=== PATIENT | male | born 1945 | race Caucasian/White ===

== ENCOUNTER 2016-12-12 14:40 | Emergency (ER) | payer MEDICARE, OTHER ==
[~2016-12-12] VITALS: Ht 170.2 cm; Wt 97.1 kg
[2016-12-12] MEDS ORDERED: LOSARTAN-HCTZ (14:58)
[2016-12-12] MEDS ORDERED: METF500T (14:58)
[2016-12-12] MEDS ORDERED: OMEP20CA3 (14:58)
[2016-12-12] MEDS ORDERED: DILT240C77 (14:58)
[2016-12-12] MEDS ORDERED: NIAS1TAB (14:58)
[2016-12-12] MEDS ORDERED: TOPR100T (14:58)
[2016-12-12] MEDS ORDERED: SYNT175T2 (14:58)
[2016-12-12] MEDS ORDERED: CLAR1TAB2 PO (16:35)
[2016-12-12] MEDS ORDERED: LOTRCRE TOP (16:35)
[2016-12-12 16:45] VITALS: BP 141/63
== END 2016-12-12 17:03 | disposition home or self-care (01) ==
LOC: M ED 16:44
DX: L30.9 Dermatitis, unspecified (principal); I10 Essential (primary) hypertension; K21.9 Gastro-esophageal reflux disease without esophagitis; Z79.899 Other long term (current) drug therapy

== ENCOUNTER → 2018-08-25 | Outpatient (REF) | payer MEDICARE, OTHER ==
[2018-08-25 18:43] LABS: FERRITIN 27 NG/ML (26-388); IRON (FE) 39 UG/DL (65-175); PERCENT SATURATION 10.2 % (19.7-50.0); TOTAL IRON BINDING CAPACITY 384 UG/DL (250-450)
[2018-08-25 18:52] LABS: FOLATE > 24.0 NG/ML; VITAMIN B12 LEVEL 726 PG/ML
== END ==
LOC: M LAB REF 18:18
DX: D64.9 Anemia, unspecified (principal)
CPT/HCPCS: 82746

== ENCOUNTER → 2018-08-25 | Outpatient (REF) | payer MEDICARE, OTHER ==
[2018-08-26 13:52] LABS: TOTAL PROTEIN,RANDOM URINE 127.3 MG/DL (0.0-12.0)
== END ==
LOC: M LAB REF 13:09
DX: E11.22 Type 2 diabetes mellitus with diabetic chronic kidney disease (principal)
CPT/HCPCS: 84156

== ENCOUNTER → 2018-09-07 | Outpatient (CLI) | payer MEDICARE, OTHER | LOC: M RAD 09:38 | DX: N28.1 Cyst of kidney, acquired (principal); N40.1 Benign prostatic hyperplasia with lower urinary tract symptoms; N18.3 Chronic kidney disease, stage 3 (moderate); E11.22 Type 2 diabetes mellitus with diabetic chronic kidney disease; I12.9 Hypertensive chronic kidney disease with stage 1 through stage 4 chronic kidney disease, or unspecified chronic kidney disease | CPT/HCPCS: 76775 ==

== ENCOUNTER → 2019-03-01 | Outpatient (REF) | payer MEDICARE, OTHER ==
[~2019-03-01] MED LIST: ALIG4CAP PO; ASPI81TA26 PO; B COTAB3 PO; CETI10TA PO; CLAR1TAB2 PO; DILT1CAP5; IRON27TA2 PO; LOSA100T5 PO; LOSARTAN-HCTZ; LOTRCRE TOP; METF500T13; NIAS500T23; OMEP20CA3; ROSU40TA3 PO; SYNT150T PO; SYNT175T2; TOPR100T; TRAM50TA2 PO; ZETI10TA30 PO
[2019-03-01 13:32] LABS: PERCENT SATURATION 15.7 % (19.7-50.0)
== END ==
LOC: M LAB REF 12:48
PROVIDERS: ATTEND Internal Medicine Nephrology
DX: D50.9 Iron deficiency anemia, unspecified (principal)

== ENCOUNTER 2019-03-10 10:08 | Outpatient (CLI) | payer MEDICARE, OTHER ==
[2019-03-10] VITALS (7 sets, daily range): BP systolic 138–164; BP diastolic 65–72
[~2019-03-10] VITALS: Ht 170.2 cm; Wt 97.7 kg
[2019-03-10] MEDS ORDERED: IRON SUCROSE 300 MG in NS 250 ML IV ONE (10:30)
[2019-03-10] MEDS ORDERED: IRON SUCROSE 25 MG in NS 50 ML IV ONE (11:15)
[2019-03-10] MEDS ORDERED: IRON SUCROSE 275 MG in NS 250 ML IV ONE (12:00)
== END 2019-03-10 16:20 | disposition home or self-care (01) ==
LOC: M INFU 10:08
PROVIDERS: ATTEND Internal Medicine Nephrology
DX: N18.3 Chronic kidney disease, stage 3 (moderate) (principal); D50.9 Iron deficiency anemia, unspecified; I12.9 Hypertensive chronic kidney disease with stage 1 through stage 4 chronic kidney disease, or unspecified chronic kidney disease; R80.9 Proteinuria, unspecified; Z79.899 Other long term (current) drug therapy
CPT/HCPCS: 96365; 96366; J1756

== ENCOUNTER 2019-03-17 10:05 | Outpatient (CLI) | payer MEDICARE, OTHER ==
[~2019-03-17] VITALS: Ht 165.1 cm; Wt 97.7 kg
[2019-03-17 10:10] VITALS: BP 123/59
[2019-03-17] MEDS ORDERED: IRON SUCROSE 300 MG in NS 250 ML IV ONE (11:00)
[2019-03-17 11:15] VITALS: BP 127/60
[2019-03-17 12:00] VITALS: BP 142/65
[2019-03-17] MEDS ORDERED: FUROSEMIDE 20 MG/2 ML VIAL (J1940) IV ONE (12:00)
[2019-03-17 13:00] VITALS: BP 138/61
[2019-03-17 14:15] VITALS: BP 139/65
[2019-03-17 14:35] VITALS: BP 144/64
== END 2019-03-17 14:40 | disposition home or self-care (01) ==
LOC: M INFU 10:05
PROVIDERS: ATTEND Internal Medicine Nephrology
DX: D50.9 Iron deficiency anemia, unspecified (principal)
CPT/HCPCS: 96365; 96366; 96375; J1756; J1940

== ENCOUNTER → 2019-06-02 | Outpatient (REF) | payer MEDICARE, OTHER ==
[~2019-06-02] MED LIST changes: +AMLO25TA PO; -METF500T13; +METF500T13 PO; +NESI12.5 PO; +OMEP1CAP73; -OMEP20CA3; -ROSU40TA3 PO; +ROSU40TA4 PO; +SENTTAB2 PO; +SUPETAB44 PO; -TOPR100T; +TOPR100T PO; +ZETI10TA16 PO; -ZETI10TA30 PO
[2019-06-02 19:01] LABS: FERRITIN 127 NG/ML (26-388); IRON (FE) 42 UG/DL (65-175); PERCENT SATURATION 12.8 % (19.7-50.0); TOTAL IRON BINDING CAPACITY 328 UG/DL (250-450)
[2019-06-02 19:06] LABS: URINE TOTAL PROTEIN 54.4 MG/DL (0-12)
[2019-06-03 13:22] LABS: ALBUMIN 4.45 GM/DL (3.29-5.55); ALBUMIN % 58.6 % (55.8-66.1); ALPHA-1-GLOBULIN % 3.8 % (2.9-4.9); ALPHA-1-GLOBULINS 0.29 GM/DL (0.17-0.41); ALPHA-2-GLOBULINS 1.06 GM/DL (0.42-0.99); ALPHA-2-GLOBULINS % 13.9 % (7.1-11.8); BETA-1-GLOBULINS 0.47 GM/DL (0.28-0.60); BETA-1-GLOBULINS % 6.2 % (4.7-7.2); BETA-2-GLOBULINS 0.42 GM/DL (0.19-0.55); BETA-2-GLOBULINS % 5.5 % (3.2-6.5); GAMMA GLOBULINS 0.91 GM/DL (0.65-1.58)
[2019-06-03 15:03] LABS: UPEP INTERPRETATION NO M-SPIKE NOTED; URINE VOLUME RANDOM ML
== END ==
LOC: M LAB REF 17:13
PROVIDERS: ATTEND Internal Medicine Nephrology
DX: R80.9 Proteinuria, unspecified (principal); D50.9 Iron deficiency anemia, unspecified

== ENCOUNTER → 2019-06-09 | Outpatient (CLI) | payer MEDICARE, OTHER ==
[2019-06-09] VITALS (8 sets, daily range): BP systolic 136–158; BP diastolic 64–70
[~2019-06-09] VITALS: Ht 170.2 cm; Wt 98.6 kg
[~2019-06-09] MED LIST changes: -AMLO25TA PO; +IRON SUCROSE 175 MG in NS 250 ML IV ONE; +IRON SUCROSE 25 MG in NS 50 ML IV ONE; +METF500T13; -METF500T13 PO; -NESI12.5 PO; -OMEP1CAP73; +OMEP20CA4; -SENTTAB2 PO; -SUPETAB44 PO; +TOPR100T; -TOPR100T PO
== END ==
LOC: M INFU 10:18
PROVIDERS: ATTEND Internal Medicine Nephrology
DX: D50.9 Iron deficiency anemia, unspecified (principal)
CPT/HCPCS: 96365; 96366; J1756

== ENCOUNTER 2019-06-16 10:10 | Outpatient (CLI) | payer MEDICARE, OTHER ==
[~2019-06-16] VITALS: Ht 170.2 cm; Wt 98.7 kg
[~2019-06-16 10:10] MED LIST changes: -IRON SUCROSE 175 MG in NS 250 ML IV ONE; -IRON SUCROSE 25 MG in NS 50 ML IV ONE; -METF500T13; +METF500T13 PO; +OMEP1CAP73; -OMEP20CA4; -TOPR100T; +TOPR100T PO
[2019-06-16 10:15] VITALS: BP 141/58
[2019-06-16] MEDS ORDERED: IRON SUCROSE 200 MG in NS 100 ML OVER 1 HR IV ONE (11:00)
[2019-06-16 11:05] VITALS: BP 148/65
[2019-06-16 12:05] VITALS: BP 140/63
[2019-06-16 13:15] VITALS: BP 126/59
[2019-08-19] MEDS ORDERED: AMLO25TA PO (09:52)
[2019-10-18] MEDS ORDERED: SENTTAB2 PO (09:50)
[2019-10-18] MEDS ORDERED: SUPETAB44 PO (09:50)
[2019-10-18] MEDS ORDERED: NESI12.5 PO (09:50)
== END 2019-06-16 13:15 | disposition home or self-care (01) ==
LOC: M INFU 10:10
PROVIDERS: ATTEND Internal Medicine Nephrology
DX: D50.9 Iron deficiency anemia, unspecified (principal); Z79.899 Other long term (current) drug therapy
CPT/HCPCS: 96365; 96366; J1756

== ENCOUNTER 2019-06-23 10:15 | Outpatient (CLI) | payer MEDICARE, OTHER ==
[~2019-06-23] VITALS: Ht 170.2 cm; Wt 98.6 kg
[~2019-06-23 10:15] MED LIST changes: +METF500T13; -METF500T13 PO; -OMEP1CAP73; +OMEP20CA4; +TOPR100T; -TOPR100T PO
[2019-06-23 10:20] VITALS: BP 143/65
[2019-06-23] MEDS: IRON SUCROSE 200 MG in NS 200 ML IV ONE (11:02)
[2019-06-23 11:15] VITALS: BP 132/59
[2019-06-23 12:00] VITALS: BP 139/62
[2019-06-23 13:00] VITALS: BP 128/60
[2019-06-23 13:35] VITALS: BP 132/59
== END 2019-06-23 13:35 | disposition home or self-care (01) ==
LOC: M INFU 10:15
PROVIDERS: ATTEND Internal Medicine Nephrology
DX: D50.9 Iron deficiency anemia, unspecified (principal); Z79.899 Other long term (current) drug therapy
CPT/HCPCS: 96365; 96366; J1756

== ENCOUNTER → 2019-08-03 | Outpatient (REF) | payer MEDICARE, OTHER ==
[2019-08-03 18:38] LABS: PERCENT SATURATION 22.4 % (19.7-50.0)
== END ==
LOC: M LAB REF 16:43
PROVIDERS: ATTEND Internal Medicine Nephrology
DX: D50.9 Iron deficiency anemia, unspecified (principal)

== ENCOUNTER → 2019-11-04 | Outpatient (REF) | payer MEDICARE, OTHER ==
[~2019-11-04] MED LIST changes: +AMLO25TA PO; -METF500T13; +METF500T13 PO; +NESI12.5 PO; +OMEP1CAP73; -OMEP20CA4; +SENTTAB2 PO; +SUPETAB44 PO; -TOPR100T; +TOPR100T PO
== END ==
LOC: M LAB REF 16:57
PROVIDERS: ATTEND Internal Medicine Nephrology
DX: R80.9 Proteinuria, unspecified (principal)

== ENCOUNTER → 2021-02-01 | Outpatient (REF) | payer MEDICARE, OTHER ==
[2021-02-01 18:22] LABS: PERCENT SATURATION 12.2 % (19.7-50.0)
== END ==
LOC: M LAB REF 16:46
PROVIDERS: ATTEND Internal Medicine Nephrology
DX: D50.9 Iron deficiency anemia, unspecified (principal)

== ENCOUNTER 2021-03-07 12:25 | Outpatient (CLI) | payer MEDICARE, OTHER ==
[~2021-03-07] VITALS: Ht 170.2 cm; Wt 96.8 kg
[~2021-03-07 12:25] MED LIST changes: +ALBUTEROL SULFATE 2.5 MG/0.5 ML INH NEB SOLN INH PRN; +EPINEPHrine INJ 1 MG/ML 1ML AMP IM PRN; +diphenhydrAMINE 50MG/ML VIAL (J1200) IV PRN; +methylPREDNISolone 125MG 2ML VIAL IV PRN
[2021-03-07 12:40] VITALS: BP 128/61
[2021-03-07] MEDS ORDERED: NS 1,000 ML IV SCH (13:00)
[2021-03-07] MEDS ORDERED: FERRIC CARBOXYMALTOSE INJ 750 MG, VIAL MATE ADAPTER 1 EACH in NS 250 ML IV ONE (13:00)
[2021-03-07] MEDS ORDERED: diphenhydrAMINE 50MG/ML VIAL (J1200) IV ONE (13:00)
[2021-03-07 14:16] VITALS: BP 141/63
[2021-03-07 15:00] VITALS: BP 126/62
== END 2021-03-07 15:00 | disposition home or self-care (01) ==
LOC: M INFU 12:25
PROVIDERS: ATTEND Internal Medicine Nephrology
DX: D50.9 Iron deficiency anemia, unspecified (principal)
CPT/HCPCS: 96365; J1439

== ENCOUNTER 2021-03-15 13:14 | Outpatient (CLI) | payer MEDICARE, OTHER ==
[~2021-03-15] VITALS: Ht 170.2 cm; Wt 100.2 kg
[2021-03-15 13:20] VITALS: BP 164/72
[2021-03-15] MEDS ORDERED: diphenhydrAMINE 50MG/ML VIAL (J1200) IV ONE (14:00)
[2021-03-15] MEDS ORDERED: NS 1,000 ML IV SCH (14:00)
[2021-03-15] MEDS ORDERED: FERRIC CARBOXYMALTOSE INJ 750 MG, VIAL MATE ADAPTER 1 EACH in NS 250 ML IV ONE (14:00)
[2021-03-15 15:00] VITALS: BP 160/70
[2021-03-15 16:15] VITALS: BP 145/75
== END 2021-03-15 16:15 | disposition home or self-care (01) ==
LOC: M INFU 13:14
PROVIDERS: ATTEND Internal Medicine Nephrology
DX: D50.9 Iron deficiency anemia, unspecified (principal)
CPT/HCPCS: 96365; 96366; J1439

== ENCOUNTER → 2021-06-29 | Outpatient (REF) | payer MEDICARE, OTHER ==
[~2021-06-29] MED LIST changes: -ALBUTEROL SULFATE 2.5 MG/0.5 ML INH NEB SOLN INH PRN; -EPINEPHrine INJ 1 MG/ML 1ML AMP IM PRN; -diphenhydrAMINE 50MG/ML VIAL (J1200) IV PRN; -methylPREDNISolone 125MG 2ML VIAL IV PRN
== END ==
LOC: M LAB REF 13:12
PROVIDERS: ATTEND Internal Medicine Nephrology
DX: N18.32 Chronic kidney disease, stage 3b (principal)

== ENCOUNTER → 2021-07-12 | Outpatient (CLI) | payer MEDICARE, OTHER ==
--- NOTE | 2021-07-12 12:36 | REP ---
INDICATION: CKD 3B COMPARISON: 09/07/2018 TECHNIQUE: Real time haines scale ultrasound examination using curved array transducer. FINDINGS: Right kidney measures 11.9 x 4.8 x 5.1 cm and includes 3.9 cm upper pole and 2.1 cm midpole simple cysts. No hydronephrosis, nephrolithiasis, or renal mass lesion identified. Left kidney measures 11.9 x 5.8 x 5.7 cm and includes 5.5 cm upper pole, 2.7 cm midpole, and 3.3 cm lower pole simple cysts. No hydronephrosis, nephrolithiasis or renal mass lesion identified. IMPRESSION: 1. Kidneys demonstrate scattered simple appearing cysts without hydronephrosis. <Electronically signed by Alex Gaytan > 07/12/21 [id number]
--- NOTE | 2021-07-12 12:38 | REP ---
INDICATION: CKD 3B COMPARISON: None TECHNIQUE: Real time B-mode ultrasound examination using curved array transducer. FINDINGS: Bladder is under distended despite the feeling of fullness without wall thickening or mass lesion. Prevoid bladder measures 4.9 x 4.8 x 4.0 cm (61 cc). Postvoid bladder measures 3.6 x 1.5 x 2.8 cm (10 cc) Postvoid residual: 16% Enlarged prostate gland measures 5.7 x 5.3 x 4.7 cm (74 cc). IMPRESSION: 1. Under distended bladder. 2. Enlarged prostate gland. <Electronically signed by Alex Gaytan > 07/12/21 [id number]
== END ==
LOC: M RAD 11:48
PROVIDERS: ATTEND Nurse Practitioner Family
DX: N18.32 Chronic kidney disease, stage 3b (principal)

== ENCOUNTER → 2021-10-03 | Outpatient (REF) | payer MEDICARE, OTHER ==
[2021-10-03 14:41] LABS: MAGNESIUM LEVEL 2.4 MG/DL (1.8-2.4); PERCENT SATURATION 18.4 % (19.7-50.0)
== END ==
LOC: M LAB REF 13:15
PROVIDERS: ATTEND Nurse Practitioner Family
DX: D50.9 Iron deficiency anemia, unspecified (principal); E83.42 Hypomagnesemia; N40.0 Benign prostatic hyperplasia without lower urinary tract symptoms

== ENCOUNTER → 2022-10-14 | Outpatient (CLI) | payer MEDICARE, OTHER | LOC: M RAD 11:28 | PROVIDERS: ATTEND Nurse Practitioner Family | DX: N28.1 Cyst of kidney, acquired (principal); N18.32 Chronic kidney disease, stage 3b ==

== ENCOUNTER → 2024-09-17 | Outpatient (CLI) | payer MEDICARE, OTHER ==
[~2024-09-17] MED LIST changes: -DILT1CAP5; +DILT240C41; +EZET10TA58 PO; -ROSU40TA4 PO; +ROSU40TA81 PO; -ZETI10TA16 PO
[2024-09-17 08:43] LABS: HEMATOCRIT 39.5 % (42.0-52.0); HEMOGLOBIN 12.1 g/dl (13.5-17.5); MEAN CORPUSCULAR HEMOGLOBIN 28.5 pg (27.0-33.0); MEAN CORPUSCULAR HGB CONC 30.6 g/dl (32.0-36.5); MEAN CORPUSCULAR VOLUME 92.9 fl (80.0-96.0); PLATELET COUNT, AUTOMATED 238 10^3/uL (150-450); RED BLOOD COUNT 4.25 10^6/uL (4.30-6.10); WHITE BLOOD COUNT 6.7 10^3/uL (4.0-10.0)
[2024-09-17 09:00] LABS: ERYTHROCYTE SEDIMENTATION RATE 16 mm/hr (0-20)
[2024-09-17 09:06] LABS: ALBUMIN 3.7 G/DL (3.2-5.2); BILIRUBIN,TOTAL 0.4 MG/DL (0.3-1.2); CALCIUM LEVEL 9.7 MG/DL (8.3-10.6); CREATININE FOR GFR 1.67 MG/DL (0.70-1.30); GLOMERULAR FILTRATION RATE 42.6 (>42); POTASSIUM SERUM 4.7 MMOL/L (3.5-5.1); TOTAL PROTEIN 7.1 G/DL (5.7-8.2)
[2024-09-17 09:13] LABS: INR 0.97; PROTHROMBIN TIME 13.2 SECONDS (12.5-14.5)
== END ==
LOC: M RAD 07:58
PROVIDERS: ATTEND Orthopaedic Surgery
DX: Z01.818 Encounter for other preprocedural examination (principal); M17.11 Unilateral primary osteoarthritis, right knee; I44.0 Atrioventricular block, first degree; I45.10 Unspecified right bundle-branch block; Z79.01 Long term (current) use of anticoagulants